=== PATIENT | female | born 1970 | race Caucasian/White ===

== ENCOUNTER 2020-02-05 00:18 | Emergency (ER) | payer OTHER, SELFPAY ==
[2020-02-05 00:20] VITALS: BP 106/54; PULSE 78; RESP 22; TEMP 36.7; O2SAT 98
[2020-02-05] MEDS: diazePAM INJ (*CRX) 10 MG/2 ML SYRINGE 5 MG IV PUSH (00:58)
[2020-02-05] MEDS: KETOROLAC 15 MG/ML VIAL (*BKC) IV PUSH (00:58)
[2020-02-05 01:04] LABS: Basophils Percent Auto 0.2 % (0.2-1.2); Eosinophils Percent Auto 0.1 % (0-4.4); Hematocrit 41.7 % (37.0-47.0); Hemoglobin 14.1 g/dL (12.0-15.0); Immature Granulocyte Absolute 0.12 K/mm3 (0.00-0.031); Immature Granulocyte Percent A 0.9 % (0-0.5); Lymphocytes Absolute Auto 2.71 K/mm3 (0.9-3.2); Mean Corpuscular HGB Conc 33.8 g/dl (32-36); Mean Corpuscular Hemoglobin 30.2 pg (26-34); Mean Corpuscular Volume 89.3 fl (80-100); Mean Platelet Volume 9.6 fl (7.4-10.4); Monocytes Absolute Auto 0.6 K/mm3 (0.1-0.6); Monocytes Percent Auto 4.5 % (2.6-8.5); Neutrophils Percent Auto 74.3 % (45.5-73.1); Platelet Count Result 294 k/mm3 (150-375); Red Blood Count 4.67 M/mm3 (4.2-5.4); Red Cell Distribution Width 13.6 % (11.5-14.5); White Blood Count 13.5 K/mm3 (4.5-10.0)
[2020-02-05 01:45] LABS: D Dimer 0.33 ug/mL (<0.48)
[2020-02-05 01:57] LABS: Anion Gap 2 mmol/L (8-16); Blood Urea Nitrogen 21 mg/dL (7-17); Calcium 8.8 mg/dL (8.4-10.2); Carbon Dioxide 32 mmol/L (22-30); Chloride 104 mmol/L (98-107); Estimated Glomerular Filt Rate > 60; Glucose 122 mg/dL (65-105); Potassium 4.2 mmol/L (3.4-5.0); Sodium 138 mmol/L (137-145)
--- NOTE | 2020-02-05 02:56 | ED.BACK ---
HPI - Back Pain/Injury General Chief Complaint: Back Pain/Injury Stated Complaint: r knee pain Time Seen by Provider: 02/05/20 00:32 History of Present Illness HPI Narrative: Patient is a 49-year-old female who presents ER with low back pain. Began 4 days ago and was seen at [place]. She was prescribed muscle relaxers and prednisone. Its radiating down her right leg going towards her knee. She feels burning in that region. She is now having anterior thigh pain as well and is concerned it could represent a blood clot. She has history of factor V Leiden. Related Data Allergies Allergy/AdvReac Type Severity Reaction Status Date / Time No Known Allergies Allergy Unverified 01/28/12 15:33 Review of Systems Review of Systems: All systems reviewed & are unremarkable except as noted in HPI and below Constitutional: Constitutional: Denies chills, Denies fever(s) and Denies weakness Gastrointestinal: Gastrointestinal: Denies abdominal pain, Denies nausea and Denies vomiting Musculoskeletal: Musculoskeletal: Reports back pain and Denies muscle cramps Neurologic: Denies focal weakness and Reports numbness Comments: Burning pain down right leg. [facility] Past Medical History Medical History (Updated 02/05/20 @ 04:04 by Adam Akins MD) Factor V Leiden TIA (transient ischemic attack) Surgical History Surgical History (Updated 02/05/20 @ 03:59 by Adam Akins MD) History of tubal ligation Social History Social History (Updated 02/05/20 @ 03:59 by Adam Akins MD) Smoking status: Current every day smoker Exam Narrative: Exam Narrative: GENERAL: Well-appearing, well-nourished, and in no acute distress. HEAD: Normocephalic, atraumatic. ENT: Mucous membranes moist. CHEST: Clear to auscultation. No respiratory distress. HEART: Regular rate and rhythm. Normal peripheral pulses. EXTREMITIES: Normal range of motion. Mild tenderness to right anterior thigh with palpation, small knots in the quadricep muscles. No edema Back: Tenderness lumbar back right side going into the SI region. SKIN: Warm, dry, no rash. NEURO: Alert and oriented x3. Course Course Emergency Course: Patient markedly more comfortable after Toradol and Valium. Will obtain ultrasound of the lower extremity to quell patient's concerns about DVT given her history of factor V Leiden. Vital Signs Vital signs: Vital Signs Temperature 98.1 F 02/05/20 00:20 Pulse Rate 78 02/05/20 00:20 Respiratory Rate 22 H 02/05/20 00:20 Blood Pressure 106/54 L 02/05/20 00:20 Pulse Oximetry 98 02/05/20 00:20 Temperature 98.1 F 02/05/20 00:20 Pulse Rate 56 L 02/05/20 03:19 Respiratory Rate 18 02/05/20 03:19 Blood Pressure 112/64 02/05/20 03:19 Pulse Oximetry 99 02/05/20 03:19 MDM - Back Pain/Injury Lab Data Result diagrams: 02/05/20 00:52 02/05/20 01:22 Labs: Lab Results 02/05/20 02/05/20 02/05/20 Range/Units 00:52 01:22 01:22 WBC 13.5 H (4.5-10.0) K/mm3 RBC 4.67 (4.2-5.4) M/mm3 Hgb 14.1 (12.0-15.0) g/dL Hct 41.7 (37.0-47.0) % MCV 89.3 (80-100) fl MCH 30.2 (26-34) pg MCHC 33.8 (32-36) g/dl RDW 13.6 (11.5-14.5) % Plt Count 294 (150-375) k/mm3 MPV 9.6 (7.4-10.4) fl Immature Gran % (Auto) 0.9 H (0-0.5) % Neut % (Auto) 74.3 H (45.5-73.1) % Lymph % (Auto) 20.0 (18.3-44.2) % Cherry % (Auto) 4.5 (2.6-8.5) % Eos % (Auto) 0.1 (0-4.4) % Baso % (Auto) 0.2 (0.2-1.2) % Lymph # (Auto) 2.71 (0.9-3.2) K/mm3 Cherry # (Auto) 0.6 (0.1-0.6) K/mm3 Eos # (Auto) 0.0 (0-0.3) K/mm3 Baso # (Auto) 0.0 (0.0-0.1) K/mm3 Abs Immat Gran (auto) 0.12 H (0.00-0.031) K/mm3 Absolute Neuts (auto) 10.0 H (1.3-6.7) K/mm3 Absolute Nucleated RBC 0.0 (0.0-0.012) K/mm3 Nucleated RBC % 0.0 (0.0-0.2) % D-Dimer 0.33 (<0.48) ug/mL Sodium 138 (137-145) mmol/L Potassium 4.2 (3.4-5.0) mmol/
[2020-02-05 03:19] VITALS: BP 112/64; PULSE 56; RESP 18; O2SAT 99
[2020-02-05 04:20] VITALS: BP 108/58; PULSE 64; RESP 16; TEMP 36.3; O2SAT 98
== END 2020-02-05 04:21 | disposition home or self-care (01) ==
PROVIDERS: Emergency Provider Emergency Medicine
DX: M54.41 Lumbago with sciatica, right side (principal); M79.651 Pain in right thigh; D68.51 Activated protein C resistance; Z86.73 Personal history of transient ischemic attack (TIA), and cerebral infarction without residual deficits; F17.200 Nicotine dependence, unspecified, uncomplicated
CPT/HCPCS: 36415; 80048; 85025; 85380; 96374; 96375; 99284; J1885; J3360

== ENCOUNTER 2024-12-05 14:56 | Outpatient (CLI) | payer OTHER, SELFPAY ==
--- OUTSIDE RECORDS SUMMARY | 2024-12-04 12:51 | XMS_ITS | Continuity of Care Document ---
Author Organization [facility] Address [address] [facility] [place] [address] [place] [address] Phone Care Team Providers Care Credit Department Manager Name Role Phone Wolf Coombs MD Unavailable Unavailable Allergies, Adverse Reactions, Alerts Substance Reaction Status Criticality No Known Allergies Active No Inform ation Medications Medication Instructions Dosage Effective Dates (start - stop) Status Comments Valtrex 1 gram tablet take 2 Tablet by oral route every 12 hours 2000 MG - Active Adderall 20 mg tablet take 1 tablet by oral route every day before breakfast 20 MG - Active Procedures Procedure Date OFFICE/OUTPATIENT VISIT, EST OFFICE/OUTPATIENT VISIT, EST OFFICE/OUTPATIENT VISIT, EST Advance Directives Directive Yes / No Effective Date File Name No Information Encounters Encounter Description Practice Location Reason(s) For Visit Diagnoses Date Provider Providers Copied on Encounter OFFICE/OUTPA TIENT VISIT, [facility], [address] [place], [place], [id number], tel:[phone] [facility] fever (chief complaint) Herpes simplex facialis Sep- 5 [facility]. [address] [place] [place], [place], [id number] , [place]. tel:[phone] OFFICE/OUTPA TIENT VISIT, [facility], [address] [place], [place], [id number], tel:[phone] [facility] ADD (chief complaint) sinus1 (chief complaint) tobacco1 (chief complaint) Attention deficitAcute sinusitisPersonal history of nicotine dependence Sep-0 5 [facility] Bloom. [address], [place], [place], [id number] , [place]. tel:[phone] OFFICE/OUTPA TIENT VISIT, EST [facility], [address] [place], [place], [id number], [place] tel:[phone] [facility] back pain1 (chief complaint) ADD (chief complaint) HSVII (chief complaint) HLP (chief complaint) factor V (chief complaint) Encounter for oth screening for malignant neoplasm of breastChronic pain syndromeAttention deficitHerpes simplex infectionMixed hyperlipidemiaActiv ated protein C resistance [facility] Bloom. [address], [place], [place], [id number] , [place]. tel:[phone] Family History Family Member Type Diagnosis Age At Onset Mother Problem Alive and well Father Problem of CHF 73 Payers Payer name Insurance type Covered green party ID Lukas carter(s) [employer] [place] [id number] Social History Type Description Quantity Date Captured Comments Alcohol Use Details No Caffeine Use Details Unknown Tobacco Use Status Heavy cigarette smok er (20-39 cigs/day) Smoking Status Light tobacco smoker Sex Female Chief Complaint And Reason For Visit From encounter dated '12/04/2024 17:51'. fever (chief complaint). Description: Pertinent negatives include difficulty breathing. Additional information: Pt c/o acute onset of fever blister on lower lip for two days Pt denies any oral mucosalesion Pt wants to try valtrex .Pt denies any fever, chill .etc. Plan Of Treatment Date Type Action Status Referral Ordered: CT THORAX W/O DYE ordered Referral Ordered: MAMMOGRAM, SCREENING ordered History Of Present Illness Encounter Date Complaint History Of Prese nt Illness fever Pertinent negati ves include difficulty breathing. Additional information: Pt c/o acute onset of fever blister on lower lip for two days Pt denies any oral mucosa lesion Pt wants to try valtrex .Pt denies any fever, chill .etc. ADD Patient has ADD. Patient has inattentive type. Patient feels scatterbrained. Patient feel poor focus and difficulty completing tasks. Patient states that Adderall is helping with symptoms. Patient feels more focused. Pt feels more energy. Patient denies any headache, dry mouth, headache, chest pain. Patient denies any appetite loss. sinus1 Pt c/o acute ons et of sinus congestion, purulent sinus drainage, mild sore throat, mild cough for one week. Pt has been taking OTC allergy meds but has not helped. pt denies any fever, chill, ear pain or sob. tobacco1 Pt has 38 pack y ear tobacco history Pt denies any hemoptysis, cough or chest pain back pain1 Pt has chronic l ow back pain Pt denies any loss of bowel or bladder control or saddle area paresthesia Pt had MRI done last year which showed DDD and stenosis. Pt also has history of neck pain s/p cervical disc surgery. pt has tension and migraine headache chronically. Pt states that she lives in pain all the time Pt tried and failed lyrica ADD Pt has ADD pt us ed to take adderall. Pt has difficulty with focus and concentration. pt feels cloudy brained. pt has difficulty completing tasks. 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 HLP Pt has mildly el evated TG on recent lab. factor V Pt has factor V leiden wit history of DVT Pt used to take xarelto but she stopped it several months ago and she does not want to restart again Instructions Date Instruction Additional Infor mation No Information Assessments Type Assessment Date assessment Herpes simplex facialis 025 Mental Status Date Cognitive Assessment Orientation - [place] ed to time, place, person, situation.
--- NOTE | ~2024-12-05 | CT_ITS ---
EXAMINATION:CT lung screening DATE: 12/05/2024 15:19 INDICATION: Nicotine dependence. TECHNIQUE: Computed tomography (CT) of the chest was performed without intravenous contrast. Automated exposure control and iterative reconstruction technique were employed. The dose-length product (DLP) was 63.66 mGy-cm. COMPARISON: CT abdomen and pelvis 01/28/2012 FINDINGS: There is mild emphysema. There is mild atelectasis bilaterally. There is a 3 mm nodule in left upper lobe. No pleural effusion. The heart size is normal. No pericardial effusion. There are bilateral breast implants. There is mild thoracic spondylosis. There are changes of anterior fusion procedure in cervical spine. IMPRESSION: 1. Lung-RADS category 2: Benign appearance or behavior. Continue annual screening with noncontrast low-dose chest CT in 12 months. Reviewed, dictated and finalized at location E. IMPRESSION: 1. Lung-RADS category 2: Benign appearance or behavior. Continue annual screeni ng with noncontrast low-dose chest CT in 12 months.
--- OUTSIDE RECORDS SUMMARY | 2024-12-05 15:38 | XMS_ITS | Patient Health Record ---
Author Organization [facility] Address [address] [place] [address] Care Team Providers Care Build And Release Manager Name Role Phone Fawn Carrizales Primary Care Provider Allergies No Known Allergies Reason For Referral No Information Medications Medication SIG (Take, Route, Frequency, Duration) Notes Start Date End Date Status Omeprazole 40 MG 1 capsule 30 minutes before morning meal Orally Once a day; Duration: 30 day(s) 12/08/2020 Active Flonase Allergy Relief 50 MCG/ACT 1 spray in each nostril Nasally Once a day; Duration: 30 day(s) Active Zantac 150 MG 1 tablet Orally Once a day; Duration: 30 day(s) 05/22/2019 Not-Taking Mucinex Maximum Strength 1200 MG 1 tablet as needed Orally every 12 hrs; Duration: 10 days 01/07/2020 Not-Taking Albuterol Sulfate HFA 108 (90 Base) MCG/ACT INHALE 1 TO 2 PUFFS BY MOUTH EVERY 4 HOURS FOR 30 DAYS; Duration: 30 Active Xanax 2 MG 1 tablet Orally once a day pt takes as needed Not-Taking Gabapentin 600 MG TAKE 1 TABLET BY MOUTH THREE TIMES A DAY; Duration: 30 Active traMADol HCl 50 MG 1 tablet as needed Orally twice a day; Duration: 14 days 02/10/2020 Active Social History Tobacco Use: Social History Observation Description Date Details (start date - stop date) Current Smoker NA - NA Sex Assigned At : Social History Observation Description Sex Assigned At Female Dont use, Tobacco Use/Smoking Question Answer Notes Are you a current every day smoker Alcohol Screen (Audit-C) Question Answer Notes Did you have a drink containing alcohol in the p ast year? Yes Section Notes: Problems Problem Type SNOMED Code ICD Code Onset Dates Problem Status W/U Status Risk Notes Problem Chronic pain (23771502) Other chronic pain (G89.29) Active confirmed Problem Sciatica (16168061) Lumbago with sciatica, right side (M54.41) Active confirmed Problem Sciatica (78588192) Lumbago with sciatica, left side (M54.42) Active confirmed Problem Anxiety (43462094) Anxiety (F41.9) Active confi rmed Problem Menstrual disorder (535308027) Irregular menses (N92.6) Active confirmed Problem Posttraumatic stress disorder (19064325) Post traumatic stress disorder (PTSD) (F43.10) Active confirmed Problem Panic disorder (236236700) Panic attacks (F41.0) Active confirmed Problem COPD - Chronic obstructive pulmonary disease (00971175) Chronic obstructive pulmonary disease, unspecified COPD type (J44.9) Active confirmed Problem Gastroesophageal reflux disease without esophagitis (438067481) Gastroesophageal reflux disease without esophagitis (K21.9) Active confirmed Problem Heterozygous Factor V Leiden mutation (099799587) Factor 5 Leiden mutation, heterozygous (D68.51) Active confirmed Plan Of Treatment Pending Test Test Name Order Date Xray : Spines, cervical 4 views 12/31/19 20 MAMMOGRAM BILAT, SCREENING 12/31/2019 MAMMOGRAM BILAT, SCREENING 01/15/2019 MRI : Lumbar without contrast 12/31/2019 Insurance Providers Payer Name Payer Address Payer Phone Subscriber Number Group Number Insured Name Patient Relationship to Insured Coverage Start Date Coverage End Date [facility] [address] [place] [address] [id number] Nissa Amador Self - patient is the insured 0 [facility] Att[facility] Claims Department [address] [place] [address] [id number] Nissa Amador Self - patient is the insured 9 [facility] [address] [place] [address] [id number] Nissa Amador Self - patient is the insured 0 0 Medical (General) History Medical History History ICD Code Panic attacks Anxiety Post traumatic stress disorder (PTSD) Factor 5 Leiden mutation, heterozygous Surgical History Surgery Date(Month/Year) Fusion 2013 Tubal 1999 Breast 2002 tendon repair 1997 TIA 2009 Hospitalization History Reason Date(Month/Year)
== END 2024-12-05 14:57 | disposition home or self-care (01) ==
PROVIDERS: Visit Provider Emergency Medicine
DX: Z12.2 Encounter for screening for malignant neoplasm of respiratory organs (principal); Z87.891 Personal history of nicotine dependence
CPT/HCPCS: 71271

== ENCOUNTER 2025-02-03 14:23 | Outpatient (CLI) | payer OTHER, SELFPAY ==
--- NOTE | ~2025-02-03 | XR_ITS ---
EXAMINATION: XR hand BI arthritis min 3V, 02/03/2025 14:39 CRATE BUILDER HISTORY: M18.9 - Osteoarthritis of first carpometacarpal joint, un... COMPARISON: No comparisons available. Findings: No acute fracture or malalignment. Minimal degenerative changes of the distal interphalangeal joints with Postsurgical changes of the first metacarpal carpal joint. Soft tissues unremarkable. Impression: No acute fracture or malalignment. Reviewed, dictated and finalized at location P. E BUILDER Impression: No acute fracture or malalignment.
--- OUTSIDE RECORDS SUMMARY | 2025-02-03 14:27 | XMS_ITS | Clinical Summary ---
Author Organization [facility] Address [address] [place] [address] Phone Care Team Providers Care Project Administrator Name Role Phone Mini Goldman MD, Shyam Gresham Primary Care Provide r Allergies Active Allergy Reactions Criticality Noted Date Comments Codeine Vomiting Low 03/06/2024 Morphine Nausea & Vomiting Low 05/02/2024 Medications fluticasone propionate (FLONASE) 50 mcg/actuation nasal spray 1 spray daily as needed Active omeprazole (PriLOSEC) 40 mg capsule Take 1 capsule (40 mg total) by mouth daily 90 capsule 1 12/03/19 24 Active aspirin 81 mg enteric coated tabletIndications: Factor V Leiden Take 1 tablet (81 mg total) by mouth daily 90 tablet 3 03/06/20 24 025 Active albuterol HFA (PROVENTIL HFA,VENTOLIN HFA,PROAIR HFA) 90 mcg/actuation inhaler Inhale 2 puffs every 4 (four) hours as needed for wheezing 18 g 1 03/06/20 24 Active clotrimazole 1 % cream Apply topically 2 (two) times a day Active HYDROcodone-acetam inophen (NORCO) 5-325 mg per tabletIndications: Pain Take 1 tablet by mouth every 6 (six) hours as needed for pain for up to 10 doses 10 tablet 06/19/19 25 Active ondansetron ODT (ZOFRAN-ODT) 4 mg disintegrating tablet Take 1 tablet (4 mg total) by mouth every 8 (eight) hours as needed for nausea or vomiting 20 tablet 06/19/19 25 Active oxyCODONE (ROXICODONE) 5 mg immediate release tabletIndications: Pain Take 1 tablet (5 mg total) by mouth every 4 (four) hours as needed for pain 5 tablet 07/11/19 25 Active pregabalin (LYRICA) 50 mg capsuleIndications :Cervical radiculopathy,Thor acic radiculopathy,Lumb ar radiculopathy Take 1 capsule (50 mg total) by mouth 3 (three) times a day 90 capsule 07/15/19 25 Active ipratropium-albute roL (DUO-NEB) 0.5-2.5 mg/3 mL nebulizer solution Take 3 mL by nebulization every 6 (six) hours as needed for wheezing or shortness of breath 60 mL 1 08/09/19 25 Active Active Problems Problem Noted Date Diagnosed Date Facial rash 09/03/2024 Assessment & Plan (09/03/2024 5:28 PM CDT): Orders: methylPREDNISolone (MEDROL DOSEPACK) 4 mg Dosepack; Take as directed on package. nystatin-triamcinolone cream; Apply to affect area twice a day for 14 days then daily for 14 days HSV 1 IgG Antibody Blood; Future HSV 2 IgG Antibody Blood; Future Primary osteoarthritis of fi rst carpometacarpal joint of right hand 04/18/2024 Thoracic radiculopathy 05/11/2022 Lumbar radiculopathy 05/11/2022 Chronic bilateral thoracic back pain 04/26/2022 Assessment & Plan (02/13/2023 8:56 AM SCRAP PREPARATION SUPERVISOR): Will restart tramadol Chronic bilateral low back pain without sciatica 01/31/2022 Tinnitus, bilateral 03/11/2021 Sensorineural hearing loss, bilateral 03/11/2021 MEGHAN (generalized anxiety disorder) 01/14/2021 Assessment & Plan (01/14/2021 3:00 PM CDT): Continue medications as before TIA (transient ischemic attack) 01/14/2021 Assessment & Plan (01/14/2021 3:01 PM CDT): Embolic stroke in 2009 in [place] On coumadin for awhile but quit when it became too hard to regulate Factor V Leiden 01/14/2021 Assessment & Plan (07/14/2024 8:24 AM CDT): Xarelto was too costly Taking aspirin daily Assessment & Plan (01/12/2022 3:18 PM CDT): Restart Xarelto Assessment & Plan (01/14/2021 3:00 PM CDT): Start XArelto for DVT preventation [facility] health care 01/14/2021 Assessment & Plan (02/27/2022 2:04 PM SCRAP PREPARATION SUPERVISOR): Reviewed labs and medication Screenings and vaccines reviewed No need for new lab draws. Cervicalgia 04/21/2014 Osteoarthritis of cervical spine without myelopa thy 04/21/2014 Cervical radiculopathy 04/21/2014 Assessment & Plan (01/14/2021 3:01 PM CDT): Referral to neurosurgery Pyelonephritis Resolved Problems Problem Noted Date Diagnosed Date Resolved Date Muscle strain 01/12/2022 03/06/2024 Upper back pain 01/12/2022 03/06/2024 Snoring 04/18/2021 03/06/2024 Assessment & Plan (04/18/2021 1:19 PM SCRAP PREPARATION SUPERVISOR): The patient presents with snoring and daytime hypersomnia. She is reluctant to do an in-lab study. Therefore, I will order a home sleep study and she will follow-up here in 3 months. Anemia 01/14/2021 03/06/2024 Fever, unspecified Encounters Date Type Department Care Team Description 12/24/2024 11:40 AM CDT - 12/24/2024 11:59 PM CDT Hospital Encounter [facility] [address] [place] [address] Right wrist pain Discharge Disposition: Discharge to home or self care from Last 3 Months Immunizations Immunization Administration Dates Next Due Hep A / Hep B 02/12/2019 Influenza, Quadrivalent, Spl it, Preservative Free, Intramuscular 02/27/2022,06/04/2020,02/12/2019 Influenza, Unspecified 02/13/2023(Deferr ed: Patient Refused),01/12/2022(Deferred: Patient Refused) Tdap 01/14/2021 Surgical History Surgery Date Site/Laterality Comments OTHER SURGICAL HISTORY Factor 5 blood disorder TUBAL LIGATION Bilateral tubal ligation OTHER SURGICAL HISTORY 03/26/1997 - 03/25/1998 Tendon repaired TENDON REPAIR Right arm CERVICAL FUSION 2016 ENDOMETRIAL ABLATION 03/26/2009 - 03/25/2010 VAGINAL DELIVERY x3 NECK SURGERY AUGMENTATION MAMMAPLASTY 03/26/2001 - 03/25/2002 Bilateral BREAST BIOPSY 03/26/1989 Left benign needle bx SPINE SURGERY 2014 COLONOSCOPY 2020 SINUS SURGERY 2003 COSMETIC SURGERY 07/2001 Medical History Medical History Date Comments TIA (transient ischemic attack) 2009 after a Novasure procedure & immobility time span due to fathers Depression Arthritis Mental problems anxiety issues/A DHD/rehab for cocaine 2006 Low back pain Leg pain Fatigue Blurred vision Ear ringing Nose congestion Wears dentures upper & lower de ntures headache Weakness bilateral hands Numbness and tingling both hands & some toes, last 2-3 toes, cold bothers hands causes pain Dizziness Loss of coordination Anxiety Bleeding disorder Factor V Leide n Mid back pain Low back pain Hip pain, bilateral Groin pain, right stenosis- bloo d clots ruled out Smoking Osteoporosis Chronic bronchitis (HCC) Migraines 2012 Neuromuscular disorder Sleep apnea 09/14 Stroke (HCC) 2009 only residual me ajit slightly diminished DDD (degenerative disc disease), lumbar and s/p cervical fusion Seasonal rhinitis COPD (chronic obstructive pu lmonary disease) 2020 Family History Medical History Relation Name Comments Allergy (severe) Daughter Cande Gentile Asthma Daughter Cande Gentile Mental illness Daughter Cande Gentile Miscarriages / Stillbirths Daughter Cande Gentile Arthritis Miguel Gentile Family hist ory of arthritis - (Added by TW Conv) Heart disease Father Miguel Gentile Heart dise ase; Heart failure Father Miguel Gentile Hypertension Father Miguel Gentile Family hist ory of hypertension - (Added by TW Conv) Snoring Father Miguel Gentile Colon cancer Maternal Grandmother Rut sampson Can cer -colon; Stroke Maternal Grandmother Rut sampson Anxiety disorder Mother Lin Ragsdale Anxiety; Arthritis Mother Lin Ragsdale Family history of arthritis - (Added by TW Conv) Depression Mother Lin Ragsdale Migraines Mother Lin Ragsdale Osteoarthritis Mother Lin Ragsdale Rheum arthritis Mother Lin Ragsdale Drug abuse Mother's Brother Uncle cracker Stroke Other 1 Family history of cerebrovascular accident - Relation: Grandmother (Added by TW Conv) Blood Clot Other 2 Family history of blood clots - Relation: Grandmother (Added by TW Conv) Arthritis Paternal Grandmother Sarah Gentile Cancer Paternal Grandmother Sarah Gentile Allergy (severe) Son 1 Gurjit garcia defects Son 1 Gurjit garcia Developmental delay Son 1 Gurjit garcia Learning disabilities Son 1 Gurjit garcia Mental illness Son 2 Kaleb Gentile Breast cancer Neg Hx Ovarian cancer Neg Hx Thyroid cancer Neg Hx Relation Name Status Comments Daughter Cande Gentile Father Miguel Gentile Maternal Grandmother Rut sampson Mother Lin Ragsdale Alive Mother's Brother Uncle cracker Other 1 Other 2 Paternal Grandmother Sarah Gentile Son 1 Gurjit garcia Son 2 Kaleb Gentile Social History Tobacco Use Types Packs/Day Years Used Date Smoking Tobacco: Every Day Cigarettes 0.3 31 E-cigarettes Vaping Smokeless Tobacco: Never Tobacco Cessation:Ready to Q uit: No; Counseling Given: Yes Comments:working on quitting- smokes 2-5 cigs per day Alcohol Use Standard Drinks/Week Comments Yes 0 (1 standard drink = 0.6 oz pur e alcohol) social AUDIT-C Answer Date Recorded Q1: How often do you have a drink containing alc ohol? 2-4 times a month 05/14/2024 Q2: How many drinks containi ng alcohol do you have on a typical day when you are drinking? 1 or 2 05/14/2024 Q3: How often do you have si x or more drinks on one occasion? Never 05/14/2024 PHQ-2 Answer Date Recorded PHQ-2 Total Score (If total score is 3 or more points, staff should administer the PHQ-9) 0 07/14/2024 Personal Safety Answer Date Recorded Have you ever been in or are you currently in a harmful physical or emotional relationship or is someone making you feel afraid or unsafe? Denies 06/18/2024 Comments No Sex and Gender Information Value Date Recorded Sex Assigned at Not on file Legal Sex Female 11:25 AM SCRAP PREPARATION SUPERVISOR Gender Identity Female 01/21/2021 3:14 PM CDT Sexual Orientation Bisexual 01/21/2021 3: 14 PM CDT Obstetrics History Para Term AB IAB SAB Ectopic Multiple Livin g Live Births 5 3 3 0 2 0 1 0 0 3 3 Date Outcome GA Total Labor Labor/2nd/3rd Weight Sex Type Anes PTL Raven A1 A5 Name Clin Term Term Term SAB AB Last Filed Vital Signs Vital Sign Reading Time Taken Comments Blood Pressure 110/70 09/03/2024 2:19 PM CDT Pulse 87 09/03/2024 2:19 PM CDT Temperature 36.6 C (97.9 F) 09/03/2024 2:19 PM CDT Respiratory Rate 18 09/03/2024 2:19 PM CDT Oxygen Saturation 98% 09/03/2024 2:19 PM CDT Inhaled Oxygen Concentration - - Weight 63 kg (139 lb) 09/03/2024 2:19 PM CDT Height 149.9 cm (4' 11.02) 09/03/2024 2:19 PM C DT Body Mass Index 28.06 09/03/2024 2:19 PM CDT Plan of Treatment Health Maintenance Due Date Last Done Comments Hepatitis C Screening 1970 Pneumococcal vaccine <65 (1 of 2 - PCV) 1988 Zoster Vaccine (1 of 2) 11/12/2019 Cervical Cancer Screening 04/18/2022 04/18/2021 Regular Well Visit/Exam 18-64 02/27/2023, 04/18/2021, 01/14/2021 Breast Cancer Screening-Mammogram 09/17/2024 09/18/2023, 07/18/2022, 06/03/2022 Influenza Vaccine (#1) 2024 , 06/04/2020, 02/12/2019 Depression Screening 07/14/2025 07/14/2024, 03/06/2024, 02/13/2023, Additional history exists Colon Cancer Screening-Colonoscopy 06/27/2026 06/27/2021 DTaP/Tdap/Td Vaccine (2 - Td or Tdap) 01/14/2031 01/14/2021 Hepatitis B Screening Completed 02/12/2019 Colon Cancer Screening-CT Colonography Discontinued 06/27/2021 Colon Cancer Screening-DNA Stool Discontinued 06/28/19 Colon Cancer Screening-FIT Discontinued 06/27/2021 Colon Cancer Screening-Sigmoidoscopy Discontinued 06/27/2021 Goals Goal Patient Goal Type Associated Problems Recent Progress Patient-Stated? Author CCM Chronic Pain Care Plan Chronic Care Management Worsening( 11:04 AM SCRAP PREPARATION SUPERVISOR) No Tara Carrera, RN Note: Problem: Chronic Pain Goals: 1. Minimize further functional decline 2. Maximize quality of life 3. Control pain Strategies: - Activity/exercise program recommendation - Conservative stepwise pain medicine strategy with multi-disciplinary approach - Recommend healthy lifestyle strategies and compensatory methods as needed Medical Devices Implanted Type Area Manufacturing Assistant Device Identifier Shelf Expiration Date Model / Serial / Lot Hardware N/A: Neck [employer] Suture Norton Knotless Fibertak Resorbable [id number] - [id number] Implanted:Qty: 1 on 05/14/2024 by Ana Maria Merida MD at [facility] Right: Wrist [employer] [id number] 12/24/2027 [id number] / / [id number] Procedures Procedure Name Priority Date/Time Associated Diagnosis Comments XR WRIST RIGHT 2 VIEWS Schedule Routine, Read Routine (OP Routine) 12/24/2024 11:56 AM CDT Right wrist pain SCREENING MAMMOGRAM BILATERAL W PRANAY W IMPLANTS Schedule Routine, Read Routine (OP Routine) 09/18/2023 3:37 PM CDT Screening mammogram, encounter for COLONOSCOPY Routine 06/27/2021 PAP AND HIGH RISK HPV, REFLEX TO GENOTYPING Routine 04/18/2021 10:26 AM SCRAP PREPARATION SUPERVISOR Screening for cervical cancer from Last 3 Months or Most Recently Relevant to Health Maintenance Results * XR Wrist Right 2 Views (12/24/2024 11:56 AM CDT) Anatomical Region Laterality Modality Upper Extremities, Wrist Right Compute d Radiography 12/27/2024 8:38 PM CDT Narrative 12/27/2024 8:40 PM CDT EXAM DESCRIPTION: XR WRIST RIGHT 2 VIEWS REASON FOR STUDY: See Dx Rt wrist surgery x 6 month Worsening pain /popping x 2 weeks TECHNIQUE: 2 radiographic view(s) of the right wrist . COMPARISON: No comparison. FINDINGS: BONES/JOINTS: Is change in keeping with resection of trapezium. There is mild osteoarthritic change of 2nd carpometacarpal joint with slight remodeling of the trapezoid.. Alignment is stable. Joint spaces are relatively maintained. Mild distal radial carpal arthritis. SOFT TISSUES: Within normal limits. IMPRESSION: No acute osseous abnormality. Postoperative change of resection of the trapezium. Mild osteoarthritic change of the 2nd carpometacarpal joint. THIS IS AN ELECTRONICALLY VERIFIED FINAL REPORT 12/27/2024 8:40 PM - Electronically signed by Benita Leo M.D. T: Report ID: [id number] Reading Location: [id number] Procedure Note Sandhya Leo MD - 12/27/2024 EXAM DESCRIPTION: XR WRIST RIGHT 2 VIEWS REASON FOR STUDY: See Dx Rt wrist surgery x 6 month Worsening pain /popping x 2 weeks TECHNIQUE: 2 radiographic view(s) of the right wrist . COMPARISON: No comparison. FINDINGS: BONES/JOINTS: Is change in keeping with resection of trapezium. There is mild osteoarthritic change of 2nd carpometacarpal joint withslight remodeling of the trapezoid.. Alignment is stable. Joint spaces are relatively maintained. Mild distal radial carpal arthritis. SOFT TISSUES: Within normal limits. IMPRESSION: No acute osseous abnormality. Postoperative change ofresection of the trapezium. Mild osteoarthritic change of the 2nd carpometacarpaljoint. THIS IS AN ELECTRONICALLY VERIFIED FINAL REPORT 12/27/2024 8:40 PM - Electronically signed by Benita Leo M.D. LC T: Report ID: [id number] Reading Location: [id number] Wolf Coombs MD IMG XR PROCEDURES Final Resu lt * Screening Mammogram Bilateral W Pranay W Implants (09/18/2023 3:37 PM CDT) Anatomical Region Laterality Modality Breast Bilateral Mammography 09/19/2023 1:00 PM CDT Impressions 09/19/2023 1:00 PM CDT There is no mammographic evidence of malignancy. A 1 year screening mammogram is recommended. BI-RADS: 1 - Negative. The patient has been or will be contacted. The patient will be entered into a reminder system with a target due date of 1 year for her next mammogram. Electronically signed by: Carolina Simpson M.D. Narrative 09/19/2023 1:00 PM CDT EXAMINATION: SCREENING MAMMOGRAM BILATERAL W PRANAY W IMPLANTS ORDERING HEALTHCARE PROVIDER: SELF SCREENING MAMMOGRAM HISTORY: Routine screening mammography. COMPARISON: 07/18/2022, 06/03/2022, 12/28/2020 TECHNIQUE: Implant included and implant displaced CC and MLO views of the bilateral breasts with tomosynthesis and computer-aided detection (CAD). FINDINGS: DENSITY: There are scattered fibroglandular elements in the bilateral breasts. BREASTS: There are bilateral subglandular saline implants, which are not significant change. The presence of implants limits the sensitivity of mammography. No suspicious mammographic finding in either breast. Self Screening Mammogram IMG MAMMO PROCEDURES Fi nal Result * Colonoscopy (06/27/2021) Anatomical Region Laterality Modality Other Historical Provider ENDOSCOPY PROCEDURES Angelica l Result * (ABNORMAL) Pap and High Risk HPV, reflex to Genotyping (04/18/2021 10:26 AM SCRAP PREPARATION SUPERVISOR) Swab (Pap test) 04/18/2021 1 0:26 AM SCRAP PREPARATION SUPERVISOR 04/20/2021 10:26 AM SCRAP PREPARATION SUPERVISOR Narrative PATHOLOGY [facility] - 04/25/2021 2:20 PM SCRAP PREPARATION SUPERVISOR [facility] Department of Pathology [address] [place] [id number] Final Report with Addendum Note to Patients: This report may contain a detailed description of human tissue sent by a health care provider to the laboratory for pathologic evaluation. The content of this report is essential for diagnosis and may provide important critical findings. This information may be unfamiliar to patients to review without a medical professional present. It is advised that the patient review this report in the presence of a health care provider who can answer questions and explain the details. Patient Name: AMINA GENTILE Address: [address] [place] [address] Gender: F : 1970 (Age: 50) Service: Laboratory Location: [facility] #: [id number] Patient Type: [facility] SPECIMEN Taken: 04/18/2021 Received: 04/20/2021 Accessioned:: 04/21/2021 Reported: 04/25/2021 Physician(s): Nolvia Bowles M.D. [facility] Diagnosis: Source of Specimen: SCREENING THIN PREP IMAGED PAP w/ HPV Specimen Adequacy: - Satisfactory for evaluation; endocervical/transformation zone component present General Category: - Other: see diagnosis below Interpretation/Results: - Endometrial cells present in woman 45 years or older. Exfoliated endometrial cells, out of phase or after menopause, may be associated with benign endometrium, hormonal alterations and uterine abnormalities. Clinical correlation is recommended - Negative for intraepithelial lesion or malignancy ANGELA Vanessa(ASCP) Katelyn Vidal M.D. Report Electronically Reviewed and Signed Out By Katelyn Vidal M.D. 04/25/2021 14:20:23 Addenda: HPV Test Interpretation NEGATIVE for types 16, 18, 31, 33, 35, 39, 45, 51, 52, 56, 58, 59, 66 and 68. Test performed utilizing Gen-Probe Aptima assay. ANGELA Bardales(ASCP) Report Electronically Reviewed and Signed Out By ASHLEY BardalesASCP) 04/22/2021 11:03:21 Specimen(s) Received: A: SCREENING THIN PREP IMAGED PAP w/ HPV Clinical History: Last Menstrual Period: 04/18/16 Menstrual History: Perimenopausal The Pap test is a screening test used to aid in the detection of cervical cancer and its precursors. It should not be the sole means by which malignant and premalignant lesions are diagnosed. Both false negative and false positive results may occur. It also has poor sensitivity for the detection of endometrial lesions and should not be used to evaluate suspected endometrial abnormalities. For these reasons it is most important to obtain Pap tests at regular intervals. The performance characteristics of some immunohistochemical stains, fluorescence in-situ hybridization tests and immunophenotyping by flow cytometry cited in this report (if any) were determined by the Surgical Pathology Department at [facility] as part of an ongoing quality control lead program and in compliance with federally mandated regulations drawn from the Clinical Laboratory Improvement Act of 1988 (CLIA '88). Some of these tests rely on the use of analyte specific reagents and are subject to specific labeling requirements by the US Food and Drug Administration. Such diagnostic tests may only be performed in a facility that is certified by the Department of Health and Human Services as a high complexity laboratory under CLIA '88. The FDA has determined that such clearance or approval is not necessary. This test is used for clinical purposes. It should not be regarded as investigational or for research. Nevertheless, federal rules concerning the medical use of analyte specific reagents require that the following disclaimer be attached to the report: This test was developed and its performance characteristics determined by the Surgical Pathology Department [facility]. It has not been cleared or approved by the U. S. Food and Drug Administration. Nolvia Bowles MD LAB CYTOLOGY ORDERABLES Final Re sult [facility] from Last 3 Months or Most Recently Relevant to Health Maintenance Insurance [facility] Advance Directives For more information, please contact: [phone] Documents on File Type Date Recorded Patient Back Padder Expl anation ADVANCE DIRECTIVE 05/02/2024 2:39 PM Power of [facility] * Full Code (Latest Code Status on File) Date Activated Date Inactivated Comments 04/14/2018 10:36 PM 04/17/2018 3:32 PM Care Teams Project Administrator Relationship Specialty Start Date End Date Shyam Morse Jr., MD [address] [place] [id number] PCP - General Internal Medicine 01/14/21
== END 2025-02-03 14:24 | disposition home or self-care (01) ==
LOC: ANHIMG 14:25
PROVIDERS: Visit Provider Plastic Surgery
DX: M18.9 Osteoarthritis of first carpometacarpal joint, unspecified (principal)
CPT/HCPCS: 73130